=== PATIENT | female | born 2000 | race Caucasian/White ===

== ENCOUNTER 2020-11-26 11:22 | Emergency (ER) | payer OTHER ==
[~2020-11-26] VITALS: Ht 157.5 cm; Wt 100.2 kg
[2020-11-26 11:26] VITALS: BP 95/61
[2020-11-26] MEDS ORDERED: KETOROLAC 60 MG/2 ML VIAL IM ONE (11:45)
[2020-11-26] MEDS ORDERED: IBUP-2213 PO (12:43)
[2020-11-26 12:59] VITALS: BP 100/64
== END 2020-11-26 13:00 | disposition home or self-care (01) ==
LOC: MED 11:22
DX: S20.02XA Contusion of left breast, initial encounter (principal); F17.210 Nicotine dependence, cigarettes, uncomplicated; Z71.6 Tobacco abuse counseling; Y04.8XXA Assault by other bodily force, initial encounter; Y93.89 Activity, other specified; Y92.89 Other specified places as the place of occurrence of the external cause; Y99.8 Other external cause status
CPT/HCPCS: 71046; 96372; 99283; J1885

== ENCOUNTER 2020-12-14 21:27 | Emergency (ER) | payer OTHER ==
[~2020-12-14] VITALS: Ht 154.9 cm; Wt 96.2 kg
[~2020-12-14 21:27] MED LIST: IBUP-2213 PO
[2020-12-14 21:36] VITALS: BP 123/69
--- NOTE | 2020-12-14 21:48 | NUR ---
PT AMBULATED TO THE TOILET TO PROVIDE URINE.
[2020-12-14] MEDS ORDERED: ALUMINUM HYD/MAG/SIMETHICONE 30 ML UDC PO ONE (22:10)
[2020-12-14] MEDS ORDERED: LIDOCAINE VISCOUS 2% 20 ML UDC PO ONE (22:10)
[2020-12-14] MEDS ORDERED: FAMOTIDINE 20 MG TAB PO ONE (22:10)
--- NOTE | 2020-12-14 22:19 | NUR ---
LAB AT BEDSIDE
--- NOTE | 2020-12-14 22:20 | NUR ---
PATIENT PRESENTS TO ED WITH PAIN WHEN URINATING . PT STATES THAT SHE HAS A SHARP PAIN WHEN URINATING THAT RADIATES TO LOWER ABDOMEN . DENIES N/V/D; SKIN IS PINK/WARM/DRY; AAOX4 WITH EVEN AND STEADY GAIT; LUNGS CLEAR BL; HR EVEN AND REGULAR; PT DENIES ANY FEVER, CP, SOB, OR COUGH AT THIS TIME; PATIENT STATES PAIN OF 8/10 AT THIS TIME; VSS; PATIENT POSITIONED FOR COMFORT; HOB ELEVATED; BEDRAILS UP X2; BED DOWN. ER MD MADE AWARE OF PT STATUS. PMH: ASTHMA NKA
--- NOTE | 2020-12-14 22:32 | NUR ---
PT REFUSED MEDICATIONS AT THIS TIME
[2020-12-14 22:33] LABS: BASOPHILS % (AUTO) 0.3 % (0.0-2.0); EOSINOPHILS # (AUTO) 0.1 K/uL (0-0.4); EOSINOPHILS % (AUTO) 1.3 % (0.0-4.0); HEMATOCRIT 40.6 % (36-48); HEMOGLOBIN 13.2 g/dL (12.0-16.0); LYMPHOCYTES % (AUTO) 17.8 % (20.5-51.1); MEAN CORPUSCULAR HEMOGLOBIN 28 pg (27-31); MEAN CORPUSCULAR HGB CONC 33 g/dL (33-37); MEAN CORPUSCULAR VOLUME 85.3 fL (80-94); MONOCYTES # (AUTO) 0.6 K/uL (0.8-1.0); MONOCYTES % (AUTO) 5.1 % (1.7-9.3); NEUTROPHILS # (AUTO) 8.4 K/uL (1.8-7.7); NEUTROPHILS % (AUTO) 75.5 % (42.2-75.2); PLATELET COUNT (AUTO) 272 K/uL (140-450); RED BLOOD CELL COUNT(AUTO) 4.76 MIL/uL (4.20-5.40); RED CELL DISTRIBUTION WIDTH 14.6 % (11.6-13.7); WHITE BLOOD COUNT (AUTO) 11.1 K/uL (4.8-10.8)
[2020-12-14 22:38] LABS: APPEARANCE,URINE CLEAR (CLEAR); BILIRUBIN,URINE NEGATIVE (NEGATIVE); BLOOD, URINE NEGATIVE (NEGATIVE); COLOR,URINE ORANGE (YELLOW); LEUKOCYTE ESTERASE ,URINE TRACE (NEGATIVE); NITRITE, URINE POSITIVE (NEGATIVE); UGLUCOSE 1+ (NEGATIVE)
[2020-12-14 22:46] LABS: ALBUMIN 3.8 g/dL (3.4-5.0); ANION GAP 9.8 (8-16); CARBON DIOXIDE 30.8 mmol/L (21-32); CREATININE 0.9 mg/dL (0.6-1.3); POTASSIUM 3.6 mmol/L (3.5-5.1); TOTAL BILIRUBIN 0.2 mg/dL (0.0-1.0)
[2020-12-14 22:53] LABS: RBC,URINE 0-5 /HPF (0-5); WBC,URINE 0-5 /HPF (0-5)
--- NOTE | 2020-12-14 22:56 | NUR ---
Estevan lopez in [facility] - 12/14/20 at 2256 by [email or web address] NAVDEEP SWAB AND BLOOD DRAWS SENT TO LAB, HANDED TO JOHN NOONAN.
[2020-12-14] MEDS ORDERED: OMEP20TC12 PO (23:36)
[2020-12-14] MEDS ORDERED: PHEN-1593 PO (23:36)
[2020-12-14] MEDS ORDERED: CEPH500C16 PO (23:36)
[2020-12-14] MEDS ORDERED: cephALEXin 500 MG CAP PO ONE (23:40)
[2020-12-14 23:46] VITALS: BP 123/69
--- NOTE | 2020-12-14 23:46 | NUR ---
Patient discharged with v/s stable. Written and verbal after care instructions given and explained. Patient alert, oriented and verbalized understanding of instructions. Ambulatory with steady gait. All questions addressed prior to discharge. ID band removed. Patient advised to follow up with PMD. Rx of KEFLEX, OMEPRAZOLE, PYRIDIUM given. Patient educated on indication of medication including possible reaction and side effects. Opportunity to ask questions provided and answered.
== END 2020-12-14 23:46 | disposition home or self-care (01) ==
LOC: MED 21:27
DX: N39.0 Urinary tract infection, site not specified (principal); K29.20 Alcoholic gastritis without bleeding
CPT/HCPCS: 36415; 80053; 81001; 81025; 83690; 85025; 87086; 99283